=== PATIENT | male | born 1985 | race Caucasian/White ===

== ENCOUNTER 2017-12-13 19:22 | Emergency (ER) | payer OTHER ==
[~2017-12-13] VITALS: Ht 185.4 cm; Wt 121.6 kg
[2017-12-13 19:46] VITALS: Ht 185.4 cm; Wt 121.6 kg
[2017-12-13 21:24] VITALS: BP 134/65
== END 2017-12-13 21:24 | disposition home or self-care (01) ==
LOC: ED 19:22
DX: S20.211A Contusion of right front wall of thorax, initial encounter (principal); E11.9 Type 2 diabetes mellitus without complications; V49.69XA Unspecified car occupant injured in collision with other motor vehicles in traffic accident, initial encounter; W22.10XA Striking against or struck by unspecified automobile airbag, initial encounter; Y93.I9 Activity, other involving external motion; Y92.413 State road as the place of occurrence of the external cause; Y99.8 Other external cause status